=== PATIENT | male | born 1985 | race Caucasian/White ===

== ENCOUNTER 2017-12-23 02:13 | Emergency (ER) | payer SELFPAY ==
[~2017-12-23] VITALS: Ht 177.8 cm; Wt 79.4 kg
[2017-12-23] MEDS ORDERED: NKM (02:17)
[2017-12-23 02:30] VITALS: BP 151/79
--- NOTE | 2017-12-23 02:53 | Emergency Room Report ---
History of Present Illness General Chief Complaint: Alcohol Intoxication Source: Patient, EMS Present Illness HPI 32-year-old male no significant past medical history p/w alcohol intoxication. Patient admits to drinking alcohol, cannot quantify amount. States that he was out his friends, got because he got drunk. He is currently intoxicated however oriented 3, Currently denying any complaints, just wants to sleep. Denies history of trauma Allergies: Coded Allergies: No Known Allergies (Unverified , 12/23/17) Patient History Past Medical History: see triage record Past Surgical History: none Pertinent Family History: none Reviewed Nursing Documentation: PMH: Agreed; PSxH: Agreed Nursing Documentation-PMH Past Medical History: No Stated History Review of Systems All Other Systems: negative except mentioned in HPI Physical Exam Vital Signs Date Time Temp Pulse Resp B/P (MAP) Pulse Ox O2 Delivery O2 Flow Rate FiO2 12/23/17 02:12 97.8 75 15 151/79 97 Room Air 97.9 Sp02 EP Interpretation: reviewed, normal General Appearance: other - intoxicated but coopertive Head: normocephalic, atraumatic Eyes: bilateral eye normal inspection, bilateral eye PERRL, bilateral eye EOMI ENT: normal ENT inspection, normal pharynx, normal voice, moist mucus membranes Neck: normal inspection, full range of motion, supple Respiratory: normal inspection, lungs clear, normal breath sounds, no respiratory distress, no retraction, no wheezing, speaking full sentences, chest symmetrical Cardiovascular #1: normal inspection, regular rate, rhythm, no edema, normal capillary refill Cardiovascular #2: 2+ radial (R), 2+ radial (L) Gastrointestinal: normal inspection, non tender, soft, non-distended, no guarding Genitourinary: no CVA tenderness Musculoskeletal: normal inspection, back normal, normal range of motion, non- tender Neurologic: normal inspection, alert, oriented x3, responsive, motor strength/ tone normal, sensory intact, normal gait, speech normal Psychiatric: normal inspection, judgement/insight normal, memory normal Skin: normal inspection, normal color, no rash, warm/dry, well hydrated, normal turgor Medical Decision Making Diagnostic Impression: Primary Impression: Acute alcoholic intoxication ER Course 32-year-old male with alcohol intoxication DDX: Likely alcohol intoxication No signs of trauma Plan: pending sobriety ER course: Patient has remained stable during ED stay. Slept comfortably during stay Now clinically sober, ambulatory. Disposition: Patient is to be discharged to home. Patient is instructed to follow up with their primary care doctor within 5 days. Please note that this Emergency Department Report was dictated using [employer] support engineer technology software, occasionally this can lead to erroneous entry secondary to interpretation by the dictation equipment Last Vital Signs Date Time Temp Pulse Resp B/P (MAP) Pulse Ox O2 Delivery O2 Flow Rate FiO2 12/23/17 02:12 97.8 75 15 151/79 97 Room Air 97.9 Disposition: HOME, SELF-CARE Condition: Improved Referrals: NOT CHOSEN IPA/,REFERRING (PCP) Patient Instructions: Alcohol Intoxication, [id number] Estrella Marquis M.D. Dec 23, 2017 02:53
[2017-12-23 06:30] VITALS: BP 117/74
[2017-12-23 06:35] VITALS: BP 117/74
== END 2017-12-23 06:35 | disposition home or self-care (01) ==
LOC: EDBD 02:13 → EMR 02:28
DX: F10.129 Alcohol abuse with intoxication, unspecified (principal)
CPT/HCPCS: 99283